=== PATIENT | male | born 1995 | race Caucasian/White ===

== ENCOUNTER 2018-04-18 12:47 | Emergency (ER) | payer SELFPAY ==
[2018-04-18] MEDS ORDERED: ONDANSETRON 4 MG/2 ML VIAL ONE (13:22)
[2018-04-18] MEDS ORDERED: NA CHLORIDE 0.9% 1,000 ML ONE (13:22)
[2018-04-18 13:50] LABS: Absolute Neutrophil 6.3 K/uL (1.8-8.0); Basophils % 0.7 % (0-1.3); Eosinophils % 1.6 % (0-4.4); Hematocrit 41.1 % (39.6-49.0); MPV 8.1 fL (7.6-11.3); RBC Red Blood Cell Count 4.37 M/uL (4.33-5.43)
[2018-04-18 13:53] LABS: Protime INR 0.94
[2018-04-18 14:10] LABS: Barbiturates NEGATIVE (NEGATIVE); Benzodiazepines NEGATIVE (NEGATIVE); Cocaine NEGATIVE (NEGATIVE); METHAMPHETAM POSITIVE (NEGATIVE); Methadone NEGATIVE (NEGATIVE); Opiates NEGATIVE (NEGATIVE); Phencyclidine NEGATIVE (NEGATIVE); THC Cannibis NEGATIVE (NEGATIVE)
--- NOTE | 2018-04-18 17:31 | EDPHYS ---
Physician Documentation [facility] Name: Frank Fortune Age: 22 yrs Sex: Male : 1995 Arrival Date: 04/18/2018 Time: 12:52 Bed 3 Private MD: ED Physician Arcadio Ball Historical: - Allergies: 04/18 13:12 No Known Drug Allergies; ph - PMHx: 13:12 possibly siezure; Schizophrenia; drug abuse; ph - PSHx: 13:12 None; ph - Immunization history:: Adult Immunizations unknown. - Social history:: Smoking status: unknown. - Ebola Screening: : No symptoms or risks identified at this time. Vital Signs: 13:13 BP 136 / 92; Pulse 107; Resp 12; Temp 97.8; Pulse Ox 100% on 3 lpm NC; ph 15:10 BP 132 / 72; Pulse 96; Resp 14; Pulse Ox 100% on R/A; sg 16:20 BP 132 / 88; Pulse 92; Resp 17; Temp 97.7; Pulse Ox 100% on R/A; sg MDM: 17:30 Patient medically screened. [facility] 04/18 12:52 Order name: CBC with Diff; Complete Time: 16:35 [facility] 04/18 12:52 Order name: PT-INR; Complete Time: 16:35 [facility] 04/18 12:52 Order name: Ptt, Activated; Complete Time: 16:35 [facility] 04/18 12:52 Order name: Urine Drug Screen; Complete Time: 16:35 [facility] 04/18 12:52 Order name: EKG; Complete Time: 12:54 [facility] 04/18 13:05 Order name: Glucose, Ancillary Testing; Complete Time: 13:30 EDMS 04/18 12:52 Order name: IV Saline Lock; Complete Time: 13:09 [facility] 04/18 12:52 Order name: Labs collected and sent; Complete Time: 13:09 [facility] 04/18 12:52 Order name: Urine Dipstick-Ancillary (obtain specimen); Complete Time: 13:09 [facility] 04/18 13:29 Order name: Labs - recollect needed; Complete Time: 17:28 eb Administered Medications: 13:18 Drug: NS 0.9% 1000 ml Route: IV; Rate: 1 bolus; Site: right antecubital; ph 13:19 Drug: Zofran 4 mg Route: IVP; Site: right antecubital; ph Point of Care Testing: Blood Glucose: 13:02 Blood Glucose: 85 mg/dL; dh3 Ranges: Critical Glucose Levels:Adult <50 mg/dl or >400 mg/dl <40 mg/dl or >180 mg/dl Disposition: 04/18/18 17:30 Discharged to Home. Impression: Other psychoactive substance abuse. - Condition is Stable. - Discharge Instructions: Substance Use Disorder. - Medication Reconciliation Form, Thank You Letter form. - Follow up: Private Physician; When: 2 - 3 days; Reason: If symptoms return, Further diagnostic work-up, Recheck today's complaints, Continuance of care, Re-evaluation by your physician. - Problem is an acute exacerbation. - Symptoms have improved. Signatures: Dispatcher [employer] EDMS Serafin Cody, RN RN sg Arcadio Ball MD MD [facility] Pham Gallagher RN RN ss Sameera Goodwin RN RN Lelia Cox Corrections: (The following items were deleted from the chart) 17:31 17:30 04/18/2018 17:30 Discharged to Home. Impression: Other psychoactive substance sg abuse. Condition is Stable. Forms are Medication Reconciliation Form, Thank You Letter, Antibiotic Education, Prescription Opioid Use. Follow up: Private Physician; When: 2 - 3 days; Reason: If symptoms return, Further diagnostic work-up, Recheck today's complaints, Continuance of care, Re-evaluation by your physician. Problem is an acute exacerbation. Symptoms have improved. kdr
--- NOTE | 2018-04-18 17:31 | ER ---
Nurse's Notes [facility] Name: Frank Fortune Age: 22 yrs Sex: Male : 1995 Arrival Date: 04/18/2018 Time: 12:52 Bed 3 Private MD: Diagnosis: Other psychoactive substance abuse Presentation: 04/18 13:07 Presenting complaint: EMS states: Called for seizure and AMS r/t greyson use, pt found ph sitting next to couch covered in vomit, responsive to painful stimuli, became combative and EMS unable to load pt onto stretcher, 300 mg Ketamine administered IM, systolic BP 140s,. HR 140 sinus tach and Spo2 98% DRY GOODS CLERK. Transition of care: patient was not received from another setting of care. Onset of symptoms was April 18, 2018. Risk Assessment: Do you want to hurt yourself or someone else? Patient reports no desire to harm self or others. Initial Sepsis Screen: Does the patient meet any 2 criteria? No. Patient's initial sepsis screen is negative. Does the patient have a suspected source of infection? No. Patient's initial sepsis screen is negative. Care prior to arrival: Medication(s) given: Normal saline infusion, 650 mL IV initiated. 18 GA, in the right antecubital area, Glucose check: 106. 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 - Social history:: Smoking status: unknown. - Ebola Screening: : No symptoms or risks identified at this time. Screenin:14 Abuse screen: Denies threats or abuse. Denies injuries from another. Nutritional ph screening: No deficits noted. Tuberculosis screening: No symptoms or risk factors identified. Fall Risk None identified. Assessment: 13:15 General: Appears in no apparent distress. slender, Behavior is unresponsive. Pain: ph Unable to use pain scale. Patient is unresponsive. pt medicated DRY GOODS CLERK. Neuro: Level of Consciousness is obtunded, Oriented to none. Cardiovascular: Capillary refill < 3 seconds in bilateral fingers Patient's skin is warm and dry. Rhythm is sinus tachycardia. Respiratory: Airway is patent Respiratory effort is even, unlabored, Respiratory pattern is regular, symmetrical. GI: EMS reports pt vomiting DRY GOODS CLERK. Derm: Skin is intact, Skin is pink, warm \\T\\ dry. 14:00 Reassessment: pt transported to CT via stretcher with CT staff members, in hallway pt sg sat up in stretcher and began yelling inaudibly at the staff members, pt transported back to exam room 2 to be calmed down. pt calmed at this time, placed into [facility] jumpsuit garb per pt request for clothing. 14:10 Reassessment: pt spitting at staff members at this time, pt encouraged not to spit at sg the staff in the ER, pt stated understanding, SRX2 bed remains in low and locked position, pt placed back to monitors at this time. 14:40 Reassessment: pt aa\\T\\o to self at this time, pt reports he does not remember what sg happened or how he got to the ER, pt informed that he was brought in via ambulance, pt states " who called the ambulance." educated pt not sure, but in report it was stated that the pts brother and mom called EMS. 14:50 Reassessment: pt laying left side lying position, eyes closed, appears calm and quiet sg with even and equal repsirations. 15:20 General: Behavior is agitated. Neuro: Level of Consciousness is awake, alert, obeys sg commands, Oriented to person, place, situation, Speech is normal, Facial symmetry appears normal. Respiratory: Airway is patent Respiratory effort is even, unlabored, Respiratory pattern is regular, symmetrical. Derm: Skin is pink, warm \\T\\ dry. 16:30 Reassessment: pt supine in bed with HOB elevated, pt laying in bed with eyes closed at sg this time, pt aunt at bedside at this time, awaiting ERP to re evaluate pt and speak with pt family member at this time. 16:50 Neuro: Level of Consciousness is awake, alert, obeys commands, Oriented to person, sg place, Speech is normal, Facial symmetry appears normal, pt requesting pain medication and requesting medication to help him sleep at home, notified of pt request, at bedside updating pt on POC and discharge to home. 16:58 Reassessment: Patient appears in no apparent distress at this time. Patient and/or sg family updated on plan of care and expected duration. Pain level reassessed. pt ambulatory to ER restroom with steady gait, carrying patient belongings with him to change clothes in the ER restroom. Overdose: 13:20 Patient took EMS reports the pt mother stated the pt smoked synthetic marijuana. sg Vital Signs: 13:13 BP 136 / 92; Pulse 107; Resp 12; Temp 97.8; Pulse Ox 100% on 3 lpm NC; ph 15:10 BP 132 / 72; Pulse 96; Resp 14; Pulse Ox 100% on R/A; sg 16:20 BP 132 / 88; Pulse 92; Resp 17; Temp 97.7; Pulse Ox 100% on R/A; sg ED Course: 12:52 Patient arrived in ED. ss 12:52 Arcadio Ball MD is Attending Physician. kdr 13:10 Triage completed. ph 13:12 Arm band placed on. ph 13:14 Straight cath inserted, using sterile technique, 16 Fr. Specimen obtained. Returned ph clear yellow urine. Patient tolerated well. Maintain EMS IV. Dressing intact. Good blood return noted. Site clean \\T\\ dry. Gauge \\T\\ site: 18G LAC. Oxygen administration via nasal cannula \\T\\ 3L/min. 13:15 Patient has correct armband on for positive identification. Placed in gown. Bed in low ph position. Call light in reach. Side rails up X2. Seizure precautions initiated. rubber washer on. Pulse ox on. NIBP on. 13:20 Initial lab(s) drawn, by me, sent to lab. sg 13:24 Serafin Cody, RN is Primary Nurse. sg 13:38 EKG done, by information technology auditor. reviewed by Arcadio Ball MD. sm3 13:40 Lab(s) recollected, by me, sent to lab. sg 13:53 Radiology exam delayed due to pt woke up and not cooperative. pj to call when ready. jg6 15:18 Radiology exam delayed due to PT HAS LOCKED HIMSELF IN THE BATHROOM AT THIS TIME. jg6 15:25 Assisted to bathroom. pt persistent on going to the restroom at this time, pt educated sg that the sensation to urinate may be there due to being catheterized when arrived in the ED, pt reports " man, why the fuck did yall do that shit to me. I was fine, why am i even fucking here, man im tired of fucking with yall. shit. im not going anywhere until i get some damn water." pt escorted back to exam room, pt tolerating water at this time, pt then turns around and ambulates back into the restroom, will continue to monitor. 15:36 pt continues to remain in the restroom in ER pod 1 at this time, reports " Man, Im sg still using the bathroom.". 15:40 pt ambulatory back to ER exam room bed 3, pt drinking water at this time. pt reports, sg "I gotta go back to the restroom." pt ambulatory back to ER pod 1 restroom at this time. 15:50 Radiology exam delayed due to pt is uncooperative at this time. 2 16:00 Assisted to bathroom. ambulatory with steady gait, pt encouraged to please return to sg exam room, pt insists on going to the restroom at this time. 17:00 No provider procedures requiring assistance completed. IV discontinued, intact, sg bleeding controlled, No redness/swelling at site. Pressure dressing applied. Administered Medications: 13:18 Drug: NS 0.9% 1000 ml Route: IV; Rate: 1 bolus; Site: right antecubital; ph 13:19 Drug: Zofran 4 mg Route: IVP; Site: right antecubital; ph Point of Care Testing: Blood Glucose: 13:02 Blood Glucose: 85 mg/dL; 3 Ranges: Outcome: 17:30 Discharge ordered by . [facility] 17:30 Discharged to home ambulatory, with family. sg 17:30 Condition: improved 17:30 Discharge instructions given to patient, but pt left prior to signing d/c papers and obtaining paperwork Instructed on discharge instructions, follow up and referral plans. safety practices, stop abusing substances Demonstrated understanding of instructions, follow-up care, Prescriptions given X 0 17:31 Patient left the ED. sg Signatures: Serafin Cody, RN RN sg Arcadio Ball MD MD [facility] Pham Gallagher RN RN Sameera Goodwin RN RN Joselyn Steve [facility] Pricilla Alfonso formerly [facility] Brenna Snell [facility] Ifrah Lorenzana6
[2018-04-18 17:49] VITALS: BP 136/92; TEMP 97.8; O2SAT 100
--- NOTE | 2018-04-19 14:04 | EKG ---
Test Date: 2018-04-18 Test Time: 13:27:42 Second Operator: NICK MEASUREMENT RESULTS: Intervals: Rate: 104 MN: 150 QRSD: 90 QT: 324 QTc: 426 [place]: P: 73 MN: 150 QRS: 80 T: 61 INTERPRETIVE STATEMENTS: Sinus tachycardia Otherwise normal ECG Compared to ECG 10/19/2016 13:35:20 Sinus rhythm no longer present Sinus arrhythmia no longer present Electronically Signed On 04-19-18 13:59:11 HAND HIDE STRETCHER by Serafin Rankin
== END 2018-04-18 17:31 | disposition home or self-care (01) ==
LOC: ER 12:47
DX: F19.10 Other psychoactive substance abuse, uncomplicated (principal)
CPT/HCPCS: 80307; 82962; 85025; 85610; 85730; 93005; J2405; J7030

== ENCOUNTER 2018-06-07 18:10 | Emergency (ER) | payer SELFPAY ==
[2018-06-07 18:58] LABS: Absolute Lymphocytes (CBC) 3.1 K/uL (0.7-4.9); Absolute Monocytes 1.2 K/uL (0.1-1.3); Absolute Neutrophil 5.5 K/uL (1.8-8.0); Eosinophils % 3.4 % (0-4.4); Hematocrit 39.2 % (39.6-49.0); Lymphocytes % 29.9 % (15.3-44.8); MPV 7.6 fL (7.6-11.3); Monocytes % 12.1 % (3.3-12.3)
--- NOTE | 2018-06-07 19:22 | RAD REPORT ---
EXAM DESCRIPTION: RAD - Chest Single View - 06/07/2018 7:00 pm CLINICAL HISTORY: Right-sided chest pain, shortness of breath COMPARISON: September 2016 TECHNIQUE: AP portable chest image was obtained 1851 hours . FINDINGS: Lungs are clear. Heart and vasculature are normal. No measurable pleural effusion and no p neumothorax. No acute bony abnormality seen. No acute aortic findings suspected. IMPRESSION: No acute cardiopulmonary process. No significant interval change.
[2018-06-07 19:23] LABS: BUN Blood Urea Nitrogen 15 mg/dL (7-18); Bicarbonate 26 mmol/L (21-32); Glucose Level 88 mg/dL (74-106); Potassium 3.6 mmol/L (3.5-5.1); Sodium Level 143 mmol/L (136-145); Troponin (Emerg Dept Use Only) < 0.02 ng/mL (0.0-0.045)
--- NOTE | 2018-06-07 19:31 | EDPHYS ---
Physician Documentation [facility] Name: Frank Fortune Age: 22 yrs Sex: Male : 1995 Arrival Date: 06/07/2018 Time: 18:11 Bed 25 Private MD: ED Physician Arcadio Ball HPI: 06/07 19:27 This 22 yrs old Male presents to ER via EMS with complaints of Chest Pain. pm1 19:27 The patient or guardian reports chest pain that is located primarily in the anterior pm1 aspect of left upper chest. The pain does not radiate. Associated signs and symptoms: Pertinent negatives: abdominal pain, cough, diaphoresis, dizziness, headache, nausea, shortness of breath, vomiting. The chest pain is described as sharp. Duration: The patient or guardian reports a single episode. Modifying factors: the symptoms are aggravated by cough, deep breath, palpation of area. Severity of pain: in the emergency department the pain is unchanged. The patient has not experienced similar symptoms in the past. The patient has not recently seen a physician. 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 - Social history:: Smoking status: . - Ebola Screening: : Patient denies travel to an Ebola-affected area in the 21 days before illness onset. ROS: 19:27 Constitutional: Negative for fever, chills, and weight loss, Eyes: Negative for injury, pm1 pain, redness, and discharge, ENT: Negative for injury, pain, and discharge, Neck: Negative for injury, pain, and swelling. 19:27 Respiratory: Negative for shortness of breath, cough, wheezing, and pleuritic chest pain, Abdomen/GI: Negative for abdominal pain, nausea, vomiting, diarrhea, and constipation, Back: Negative for injury and pain, : Negative for injury, bleeding, discharge, and swelling, MS/Extremity: Negative for injury and deformity, Skin: Negative for injury, rash, and discoloration, Neuro: Negative for headache, weakness, numbness, tingling, and seizure. 19:27 Cardiovascular: Positive for chest pain, Negative for edema, orthopnea, palpitations, paroxysmal nocturnal dyspnea. Exam: 19:27 Constitutional: This is a well developed, well nourished patient who is awake, alert, pm1 and in no acute distress. Head/Face: Normocephalic, atraumatic. Eyes: Pupils equal round and reactive to light, extra-ocular motions intact. Lids and lashes normal. Conjunctiva and sclera are non-icteric and not injected. Cornea within normal limits. Periorbital areas with no swelling, redness, or edema. ENT: Nares patent. No nasal discharge, no septal abnormalities noted. Tympanic membranes are normal and external auditory canals are clear. Oropharynx with no redness, swelling, or masses, exudates, or evidence of obstruction, uvula midline. Mucous membranes moist. Neck: Trachea midline, no thyromegaly or masses palpated, and no cervical lymphadenopathy. Supple, full range of motion without nuchal rigidity, or vertebral point tenderness. No Meningismus. 19:27 Cardiovascular: Regular rate and rhythm with a normal S1 and S2. No gallops, murmurs, or rubs. Normal PMI, no JVD. No pulse deficits. Respiratory: Lungs have equal breath sounds bilaterally, clear to auscultation and percussion. No rales, rhonchi or wheezes noted. No increased work of breathing, no retractions or nasal flaring. Abdomen/GI: Soft, non-tender, with normal bowel sounds. No distension or tympany. No guarding or rebound. No evidence of tenderness throughout. Back: No spinal tenderness. No costovertebral tenderness. Full range of motion. 19:27 Skin: Warm, dry with normal turgor. Normal color with no rashes, no lesions, and no evidence of cellulitis. MS/ Extremity: Pulses equal, no cyanosis. Neurovascular intact. Full, normal range of motion. 19:27 Chest/axilla: Inspection: normal, Palpation: crepitus, is not appreciated, tenderness, of the anterior aspect of left upper chest, that totally reproduces the patient's complaints. 19:27 NSR 19:27 Neuro: Orientation: is normal, Motor: is normal, moves all fours. Vital Signs: 18:13 Pulse 93; Resp 17; Temp 98.1(O); Pulse Ox 97% on R/A; Pain 10/10; tw2 19:05 BP 138 / 89; Pulse 73; Resp 16; Pulse Ox 100% on R/A; aa1 19:34 BP 133 / 85; Pulse 73; Resp 16; Temp 98.3; Pulse Ox 99% on R/A; Pain 6/10; aa1 MDM: 18:25 Patient medically screened. pm1 18:30 Data reviewed: vital signs. Data interpreted: Pulse oximetry: on room air is 97 %. pm1 Interpretation: normal. 19:30 Counseling: I had a detailed discussion with the patient and/or guardian regarding: the pm1 historical points, exam findings, and any diagnostic results supporting the discharge/admit diagnosis, lab results, radiology results, the need for outpatient follow up, to return to the emergency department if symptoms worsen or persist or if there are any questions or concerns that arise at home. 06/07 18:30 Order name: Basic Metabolic Panel; Complete Time: 19:26 pm1 06/07 18:30 Order name: CBC with Diff; Complete Time: 19:26 pm1 06/07 18:30 Order name: Cardiac monitoring; Complete Time: 18:44 pm1 06/07 18:30 Order name: Troponin (emerg Dept Use Only); Complete Time: 19:26 pm1 06/07 18:30 Order name: XRAY Chest (1 view); Complete Time: 19:26 pm1 06/07 18:30 Order name: EKG; Complete Time: 18:32 pm1 06/07 18:30 Order name: O2 Sat Monitoring; Complete Time: 18:44 pm1 06/07 18:30 Order name: O2 Per Protocol; Complete Time: 18:44 pm1 06/07 18:30 Order name: EKG - Nurse/Tech; Complete Time: 18:44 pm1 06/07 18:30 Order name: IV Saline Lock; Complete Time: 18:44 pm1 06/07 18:30 Order name: Labs collected and sent; Complete Time: 18:44 pm1 Administered Medications: No medications were administered Disposition: 06/07/18 19:30 Discharged to Home. Impression: Chest pain, unspecified. - Condition is Stable. - Discharge Instructions: Nonspecific Chest Pain. - Medication Reconciliation Form, Thank You Letter, Antibiotic Education, Prescription Opioid Use form. - Follow up: Emergency Department; When: As needed; Reason: Worsening of condition. Follow up: Private Physician; When: 2 - 3 days; Reason: Recheck today's complaints, Continuance of care, Re-evaluation by your physician. - Problem is new. - Symptoms have improved. Addendum: 06/10/2018 07:08 Co-signature as Attending Physician, Arcadio Ball MD I agree with the assessment and k dr plan of care. Signatures: Dispatcher [employer] EDMS Gala Cervantes RN RN aa1 Arcadio Ball MD MD [facility] [employer] NP ROLLER CLEANER pm1 Liza Palm RN RN tw2 Corrections: (The following items were deleted from the chart) 06/07 19:41 19:30 06/07/2018 19:30 Discharged to Home. Impression: Chest pain, unspecified. aa1 Condition is Stable. Forms are Medication Reconciliation Form, Thank You Letter, Antibiotic Education, Prescription Opioid Use. Follow up: Emergency Department; When: As needed; Reason: Worsening of condition. Follow up: Private Physician; When: 2 - 3 days; Reason: Recheck today's complaints, Continuance of care, Re-evaluation by your physician. Problem is new. Symptoms have improved. pm1
--- NOTE | 2018-06-07 19:31 | ER ---
Nurse's Notes [facility] Name: Frank Fortune Age: 22 yrs Sex: Male : 1995 Arrival Date: 06/07/2018 Time: 18:11 Bed 25 Private MD: Diagnosis: Chest pain, unspecified Presentation: 06/07 18:11 Presenting complaint: EMS states: pt in custody of [employer], officer at bedside, pt c/o SOB tw2 with sharp stabbing pain to RIGHT side of chest , pt is exhibiting symptoms of anxiety, crying, fidgeting, vs stable. Transition of care: patient was not received from another setting of care. Onset of symptoms was June 07, 2018. Risk Assessment: Do you want to hurt yourself or someone else? Patient reports no desire to harm self or others. Initial Sepsis Screen: Does the patient meet any 2 criteria? No. Patient's initial sepsis screen is negative. Does the patient have a suspected source of infection? No. Patient's initial sepsis screen is negative. Care prior to arrival: None. 18:11 Method Of Arrival: EMS: [facility] tw2 18:11 Acuity: [place] 3 tw2 Historical: - Allergies: 18:15 No Known Drug Allergies; tw2 - PMHx: 18:15 Schizophrenia; possibly siezure; drug abuse; tw2 - PSHx: 18:15 None; tw2 - Immunization history:: Adult Immunizations. - Social history:: Smoking status: . - Ebola Screening: : Patient denies travel to an Ebola-affected area in the 21 days before illness onset. Screenin:14 Abuse screen: Denies threats or abuse. Nutritional screening: No deficits noted. tw2 Tuberculosis screening: No symptoms or risk factors identified. Fall Risk None identified. Assessment: 18:15 General: Appears in no apparent distress. Behavior is calm, cooperative, appropriate tw2 for age. Pain: Pain does not radiate. Pain began suddenly. Neuro: Level of Consciousness is awake, alert, obeys commands, Oriented to person, place, time, situation. Cardiovascular: Heart tones S1 S2 Capillary refill < 3 seconds Patient's skin is warm and dry. Cardiovascular: Reports chest pain. Respiratory: Airway is patent Respiratory effort is even, unlabored, Respiratory pattern is regular, symmetrical, Breath sounds are clear bilaterally. GI: No signs and/or symptoms were reported involving the gastrointestinal system. : No signs and/or symptoms were reported regarding the genitourinary system. EENT: No signs and/or symptoms were reported regarding the EENT system. Derm: No signs and/or symptoms reported regarding the dermatologic system. Musculoskeletal: Circulation, motion, and sensation intact. Range of motion: limited in all extremities, d/t hand cuffs and y-shaped harness. 19:05 Reassessment: Patient appears in no apparent distress at this time. Patient and/or aa1 family updated on plan of care and expected duration. Pain level reassessed. Patient is alert, oriented x 3, equal unlabored respirations, skin warm/dry/pink. Awaiting provider reassessment. 19:40 Reassessment: Patient appears in no apparent distress at this time. Patient is alert, aa1 oriented x 3, equal unlabored respirations, skin warm/dry/pink. Discussed d/c \T\ f/u instructions with pt; denies questions or concerns at this time Patient denies pain at this time. Patient states feeling better. Vital Signs: 18:13 Pulse 93; Resp 17; Temp 98.1(O); Pulse Ox 97% on R/A; Pain 10/10; tw2 19:05 BP 138 / 89; Pulse 73; Resp 16; Pulse Ox 100% on R/A; aa1 19:34 BP 133 / 85; Pulse 73; Resp 16; Temp 98.3; Pulse Ox 99% on R/A; Pain 6/10; aa1 ED Course: 18:11 Patient arrived in ED. tw2 18:13 Triage completed. tw2 18:14 Arm band placed on. tw2 18:14 Patient maintains SpO2 saturation greater than 95% on room air. tw2 18:16 Bed in low position. Call light in reach. Side rails up X2. supply chain systems manager on. Pulse tw2 ox on. NIBP on. [employer] at bedside at this time. 18:22 Liza Palm RN is Primary Nurse. tw2 18:24 Sony Church NP is PHCP. pm1 18:24 Arcadio Ball MD is Attending Physician. pm1 18:40 Inserted saline lock: 20 gauge in left forearm, using aseptic technique. Blood hb collected. 19:00 XRAY Chest (1 view) In Process Unspecified. EDMS 19:03 Report given to ROSS Cedeño. tw2 19:40 No provider procedures requiring assistance completed. IV discontinued, intact, aa1 bleeding controlled, No redness/swelling at site. Pressure dressing applied. Administered Medications: No medications were administered Outcome: 19:30 Discharge ordered by MD. pm1 19:40 Discharged to Law Enforcement aa1 19:40 Condition: good 19:40 Discharge instructions given to patient, police, Instructed on discharge instructions, follow up and referral plans. Demonstrated understanding of instructions, follow-up care. 19:41 Patient left the ED. aa1 Signatures: Dispatcher [employer] EDPR Gala Cervantes, ROSS RN aa1 Sony Church, DESKTOP SUPPORT ENGINEER DESKTOP SUPPORT ENGINEER pm1 Yu Moreno RN RN Liza Palm RN RN tw2
[2018-06-07 19:52] VITALS: BP 133/85; TEMP 98.3; O2SAT 99
--- NOTE | 2018-06-08 07:15 | EKG ---
Test Date: 2018-06-07 Test Time: 18:37:08 Offset Printing Operator: TM MEASUREMENT RESULTS: Intervals: Rate: 65 OH: 136 QRSD: 82 QT: 382 QTc: 397 Dumont: P: 38 OH: 136 QRS: 83 T: 70 INTERPRETIVE STATEMENTS: Normal sinus rhythm Normal ECG Compared to ECG 04/18/2018 13:27:42 Sinus tachycardia no longer present Electronically Signed On 06-08-18 07:14:35 BONSAI TENDER by Surya Candelaria
== END 2018-06-07 19:41 | disposition home or self-care (01) ==
LOC: ER 18:10
DX: R07.9 Chest pain, unspecified (principal)
CPT/HCPCS: 36415; 71045; 80048; 84484; 85025; 93005; 99285

== ENCOUNTER 2018-10-01 16:59 | Emergency (ER) | payer SELFPAY ==
--- NOTE | 2018-10-01 17:09 | ER ---
Nurse's Notes [facility] Name: Frank Fortune Age: 23 yrs Sex: Male : 1995 Arrival Date: 10/01/2018 Time: 17:03 Bed 17 Private MD: Diagnosis: Panic disorder [episodic paroxysmal anxiety] without agoraphobia Presentation: 10/01 17:04 Presenting complaint: EMS states: Patient's friend jumped off the [place] and went to senior living. Pt reports shortly after that he felt anxious and that he felt as if he was going to have a seizure. On arrival to ER, patient reports he is feeling much better and believes it was just anxiety and would like to go home. Transition of care: patient was not received from another setting of care. Onset of symptoms was October 01, 2018. Risk Assessment: Do you want to hurt yourself or someone else? Patient reports no desire to harm self or others. Initial Sepsis Screen: Does the patient meet any 2 criteria? No. Patient's initial sepsis screen is negative. Does the patient have a suspected source of infection? No. Patient's initial sepsis screen is negative. Care prior to arrival: None. 17:04 Method Of Arrival: EMS: [facility] 17:04 Acuity: [place] 5 Historical: - Allergies: 17:09 No Known Allergies; ss - Home Meds: 17:09 None [Active]; ss - PMHx: 17:09 drug abuse; Schizophrenia; Seizures; ss - PSHx: 17:09 None; ss - Immunization history:: Adult Immunizations up to date. - Social history:: Smoking status: Patient uses tobacco products, smokes one-half pack cigarettes per day. - Ebola Screening: : Patient denies exposure to infectious person Patient denies travel to an Ebola-affected area in the 21 days before illness onset. Screenin:10 Abuse screen: Denies threats or abuse. Denies injuries from another. Nutritional ss screening: No deficits noted. Tuberculosis screening: Never had TB. Fall Risk None identified. Assessment: 17:10 General: Appears in no apparent distress. comfortable, Behavior is calm, cooperative. ss Pain: Denies pain. Neuro: Level of Consciousness is awake, alert, obeys commands, Oriented to person, place, time, situation. Cardiovascular: Capillary refill < 3 seconds is brisk in bilateral fingers. Respiratory: Airway is patent Respiratory effort is even, unlabored, Respiratory pattern is regular, symmetrical. EENT: Oral mucosa is moist. Derm: Skin is intact, is healthy with good turgor, Skin is dry, Skin is pink, warm \T\ dry. normal. Vital Signs: 17:09 BP 130 / 70; Pulse 90; Resp 15; Temp 98.7(TE); Pulse Ox 99% on R/A; Weight 81.65 kg; ss Height 6 ft. 0 in. (182.88 cm); Pain 0/10; 17:09 Body Mass Index 24.41 (81.65 kg, 182.88 cm) ED Course: 17:03 Patient arrived in ED. 17:03 Shai Crespo PA is PHCP. jr8 17:03 Wilbur Ramírez MD is Attending Physician. jr8 17:08 Triage completed. ss 17:09 Arm band placed on right wrist. 17:10 Patient has correct armband on for positive identification. Bed in low position. Call ss light in reach. 17:10 No provider procedures requiring assistance completed. Patient did not have IV access ss during this emergency room visit. Administered Medications: No medications were administered Outcome: 17:08 Discharge ordered by . jr8 17:10 Discharged to home ambulatory, with family. 17:10 Condition: good 17:10 Discharge instructions given to patient, family, Instructed on discharge instructions, follow up and referral plans. Demonstrated understanding of instructions, follow-up care. 17:11 Patient left the ED. Signatures: Pham Gallagher RN RN Shai Crespo PA PA jr8
--- NOTE | 2018-10-01 17:09 | EDPHYS ---
Physician Documentation [facility] Name: Frank Fortune Age: 23 yrs Sex: Male : 1995 Arrival Date: 10/01/2018 Time: 17:03 Bed 17 Private MD: ED Physician Wilbur Ramírez HPI: 10/01 17:04 This 23 yrs old Male presents to ER via Unassigned with complaints of jr8 anxiety. [employer] like he was going to have seizure. 17:04 The patient presents to the emergency department with anxiety. Onset: The jr8 symptoms/episode began/occurred acutely, today. Associated signs and symptoms: The patient has no apparent associated signs or symptoms. Severity of symptoms: At their worst the symptoms were moderate in the emergency department the symptoms have resolved. The patient has not experienced similar symptoms in the past. The patient has not recently seen a physician. Stated that friend and [place]. Friend jumped off into water. Police came and was going to arrest him. Started to feel anxious. Brought to ED at that time. Now feeling better. Historical: - Allergies: 17:09 No Known Allergies; ss - Home Meds: 17:09 None [Active]; ss - PMHx: 17:09 drug abuse; Schizophrenia; Seizures; ss - PSHx: 17:09 None; ss - Immunization history:: Adult Immunizations up to date. - Social history:: Smoking status: Patient uses tobacco products, smokes one-half pack cigarettes per day. - Ebola Screening: : Patient denies exposure to infectious person Patient denies travel to an Ebola-affected area in the 21 days before illness onset. ROS: 17:04 Eyes: Negative for injury, pain, redness, and discharge, ENT: Negative for injury, jr8 pain, and discharge, Neck: Negative for injury, pain, and swelling, Cardiovascular: Negative for chest pain, palpitations, and edema, Respiratory: Negative for shortness of breath, cough, wheezing, and pleuritic chest pain, Abdomen/GI: Negative for abdominal pain, nausea, vomiting, diarrhea, and constipation, Back: Negative for injury and pain, MS/Extremity: Negative for injury and deformity, Skin: Negative for injury, rash, and discoloration, Neuro: Negative for headache, weakness, numbness, tingling, and seizure. 17:04 Psych: Positive for anxiety. Exam: 17:04 Eyes: Pupils equal round and reactive to light, extra-ocular motions intact. Lids and jr8 lashes normal. Conjunctiva and sclera are non-icteric and not injected. Cornea within normal limits. Periorbital areas with no swelling, redness, or edema. ENT: Nares patent. No nasal discharge, no septal abnormalities noted. Tympanic membranes are normal and external auditory canals are clear. Oropharynx with no redness, swelling, or masses, exudates, or evidence of obstruction, uvula midline. Mucous membranes moist. Neck: Trachea midline, no thyromegaly or masses palpated, and no cervical lymphadenopathy. Supple, full range of motion without nuchal rigidity, or vertebral point tenderness. No Meningismus. Cardiovascular: Regular rate and rhythm with a normal S1 and S2. No gallops, murmurs, or rubs. Normal PMI, no JVD. No pulse deficits. Respiratory: Lungs have equal breath sounds bilaterally, clear to auscultation and percussion. No rales, rhonchi or wheezes noted. No increased work of breathing, no retractions or nasal flaring. Abdomen/GI: Soft, non-tender, with normal bowel sounds. No distension or tympany. No guarding or rebound. No evidence of tenderness throughout. Back: No spinal tenderness. No costovertebral tenderness. Full range of motion. Skin: Warm, dry with normal turgor. Normal color with no rashes, no lesions, and no evidence of cellulitis. MS/ Extremity: Pulses equal, no cyanosis. Neurovascular intact. Full, normal range of motion. Neuro: Awake and alert, GCS 15, oriented to person, place, time, and situation. Cranial nerves II-XII grossly intact. Motor strength 5/5 in all extremities. Sensory grossly intact. Cerebellar exam normal. Normal gait. Psych: Awake, alert, with orientation to person, place and time. Behavior, mood, and affect are within normal limits. Vital Signs: 17:09 BP 130 / 70; Pulse 90; Resp 15; Temp 98.7(TE); Pulse Ox 99% on R/A; Weight 81.65 kg; ss Height 6 ft. 0 in. (182.88 cm); Pain 0/10; 17:09 Body Mass Index 24.41 (81.65 kg, 182.88 cm) ss MDM: 17:03 Patient medically screened. jr8 17:07 Data reviewed: vital signs, nurses notes, and as a result, I will discharge patient. jr8 Data interpreted: Pulse oximetry: on room air is 100 %. Interpretation: normal. Counseling: I had a detailed discussion with the patient and/or guardian regarding: the historical points, exam findings, and any diagnostic results supporting the discharge/admit diagnosis, the need for outpatient follow up, a family practitioner, to return to the emergency department if symptoms worsen or persist or if there are any questions or concerns that arise at home. Administered Medications: No medications were administered Disposition: 10/02 09:43 Co-signature as Attending Physician, Wilbur Ramírez MD I agree with the assessment and wa plan of care. Disposition: 10/01/18 17:08 Discharged to Home. Impression: Panic disorder [episodic paroxysmal anxiety] without agoraphobia. - Condition is Stable. - Discharge Instructions: Panic Attacks. - Medication Reconciliation Form, Thank You Letter, Antibiotic Education, Prescription Opioid Use form. - Follow up: Private Physician; When: As needed; Reason: Recheck today's complaints, Continuance of care, Re-evaluation by your physician. - Problem is new. - Symptoms are resolved. Signatures: Pham Gallagher RN RN Shai Crespo PA PA jr8 Wilbur Ramírez MD MD nc Corrections: (The following items were deleted from the chart) 10/01 17:11 17:08 10/01/2018 17:08 Discharged to Home. Impression: Panic disorder [episodic ss paroxysmal anxiety] without agoraphobia. Condition is Stable. Forms are Medication Reconciliation Form, Thank You Letter, Antibiotic Education, Prescription Opioid Use. Follow up: Private Physician; When: As needed; Reason: Recheck today's complaints, Continuance of care, Re-evaluation by your physician. Problem is new. Symptoms are resolved. jr8
[2018-10-02 19:46] VITALS: BP 130/70; TEMP 98.7; O2SAT 99
== END 2018-10-01 17:11 | disposition home or self-care (01) ==
LOC: ER 16:59
DX: F41.0 Panic disorder [episodic paroxysmal anxiety] (principal); F17.210 Nicotine dependence, cigarettes, uncomplicated
CPT/HCPCS: 99283

== ENCOUNTER 2021-12-06 13:44 | Emergency (ER) | payer SELFPAY ==
--- NOTE | 2021-12-06 15:49 | RAD REPORT ---
EXAM DESCRIPTION: US - Scrotum Testicles - 12/06/2021 3:39 pm CLINICAL HISTORY: pain COMPARISON: <Comparisons> FINDINGS: The right testicle measures 3.1 x 2.6 x 4.5 cm with volume of 18.7 cc. No intratesticular masses or evidence of testicular torsion. The left testicle measures 4.6 x 2.3 x 4.3 cm with volume of 24.3 cc.. No intratesticular masses or e vidence of testicular torsion. Both epididymides are normal in size and appearance. No pathologic fluid collections. IMPRESSION: Bilateral testicular blood flow. No acute findings are identified.
[2021-12-06 16:29] LABS: Urine Blood Negative (Negative); Urine Glucose Negative (Negative); Urine Protein Negative (Negative); Urine Specific Gravity 1.025 (1.005-1.030)
[2021-12-06 17:07] LABS: Urine Mucus 1+ /HPF (None Seen); Urine RBC <5 /HPF (None Seen)
--- NOTE | 2021-12-06 17:12 | EDPHYS ---
Physician Documentation [facility] Name: Frank Fortune Age: 26 yrs Sex: Male : 1995 Arrival Date: 12/06/2021 Time: 13:46 Bed Waiting Private MD: ED Physician Michael Crawford HPI: 12/06 14:25 This 26 yrs old Male presents to ER via Ambulatory with complaints of Testicular Pain. pm1 14:25 The patient presents with scrotal pain, of both sides. Onset: The symptoms/episode pm1 began/occurred this morning. Modifying factors: The symptoms are alleviated by nothing, the symptoms are aggravated by nothing. Associated signs and symptoms: Pertinent positives: abdominal pain, Pertinent negatives: dysuria, fever, hematuria, penile discharge. Severity of symptoms: in the emergency department the symptoms are unchanged. The patient has not experienced similar symptoms in the past. The patient has not recently seen a physician. Historical: - Allergies: 14:15 No Known Allergies; bm7 - PMHx: 14:15 drug abuse; possibly siezure; Schizophrenia; Seizures; bm7 - PSHx: 14:15 None; bm7 - Immunization history:: Adult Immunizations up to date. - Social history:: Smoking status: Patient reports the use of cigarette tobacco products, smokes one-half pack cigarettes per day, Patient uses street drugs, marijuana. ROS: 14:25 Constitutional: Negative for fever, chills, and weight loss, Cardiovascular: Negative pm1 for chest pain, palpitations, and edema, Respiratory: Negative for shortness of breath, cough, wheezing, and pleuritic chest pain. 14:25 Back: Negative for injury and pain. 14:25 MS/Extremity: Negative for injury and deformity, Skin: Negative for injury, rash, and discoloration. 14:25 Neuro: Negative for headache, weakness, numbness, tingling, and seizure. 14:25 Abdomen/GI: Positive for abdominal pain, of the suprapubic area, feels like someon kicked him in the groin pain, Negative for nausea, vomiting, and diarrhea. 14:25 : Positive for testicular pain of the left testicle and right testicle. 14:25 All other systems are negative. Exam: 14:25 Constitutional: This is a well developed, well nourished patient who is awake, alert, pm1 and in no acute distress. Head/Face: Normocephalic, atraumatic. 14:25 Skin: Warm, dry with normal turgor. Normal color with no rashes, no lesions, and no evidence of cellulitis. MS/ Extremity: Pulses equal, no cyanosis. Neurovascular intact. Full, normal range of motion. 14:25 Eyes: Exam is negative for acute changes, Periorbital structures: appear normal, Pupils: no acute changes, Extraocular movements: no acute changes. 14:25 ENT: Exam is negative for acute changes, Mouth: no acute changes, Lips: normal, moist, Oral mucosa: normal, pink and intact, moist. 14:25 Cardiovascular: Exam negative for acute changes, Rate: normal, Rhythm: regular, Pulses: no pulse deficits are appreciated. 14:25 Respiratory: Exam negative for acute changes, respiratory distress, shortness of breath. 14:25 Abdomen/GI: Inspection: abdomen appears normal, Palpation: abdomen is soft and non-tender, in all quadrants. 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 14:25 Neuro: Exam negative for acute changes, Orientation: is normal, Mentation: is normal, Motor: is normal, moves all fours. Vital Signs: 14:15 BP 128 / 76; Pulse 83; Resp 16; Temp 98.6(TE); Pulse Ox 100% on R/A; Weight 74.84 kg bm7 (R); Height 6 ft. 1 in. (185.42 cm); Pain 8/10; 14:15 Body Mass Index 21.77 (74.84 kg, 185.42 cm) bm7 MDM: 14:11 Patient medically screened. pm1 14:24 Data reviewed: vital signs. Data interpreted: Pulse oximetry: on room air is 100 %. pm1 Interpretation: normal. 17:10 Counseling: I had a detailed discussion with the patient and/or guardian regarding: the pm1 historical points, exam findings, and any diagnostic results supporting the discharge/admit diagnosis, lab results, radiology results, the need for outpatient follow up, to return to the emergency department if symptoms worsen or persist or if there are any questions or concerns that arise at home. 12/06 16:29 Order name: Urine Dipstick-Ancillary; Complete Time: 16:31 EDMS 12/06 14:25 Order name: Urine Dipstick-Ancillary (obtain specimen); Complete Time: 16:28 pm1 12/06 14:25 Order name: US Scrotum Testicles pm1 12/06 15:50 Order name: US; Complete Time: 16:22 EDMS 12/06 17:07 Order name: Urine Microscopic Only; Complete Time: 17:10 EDMS Administered Medications: No medications were administered Disposition: 18:49 Co-signature as Attending Physician, Michael Crawford MD. rn Disposition Summary: 12/06/21 17:11 Discharge Ordered Location: Home pm1 Problem: new pm1 Symptoms: have improved pm1 Condition: Stable pm1 Diagnosis - Scrotal pain pm1 Followup: pm1 - With: Emergency Department - When: As needed - Reason: Worsening of condition Followup: pm1 - With: Private Physician - When: 2 - 3 days - Reason: Recheck today's complaints, Continuance of care, Re-evaluation by your physician Discharge Instructions: - Discharge Summary Sheet pm1 - Testicular Self-Exam pm1 Forms: - Medication Reconciliation Form pm1 - Thank You Letter pm1 - Antibiotic Education pm1 - Prescription Opioid Use pm1 Signatures: Dispatcher [employer] EDMichael Zavala MD MD rn Marinas, Patrick, DIANA SUEDING MACHINE OPERATOR pm1 Ronda Strong, RN RN bm7
--- NOTE | 2021-12-06 17:12 | ER ---
Nurse's Notes [facility] Name: Frank Fortune Age: 26 yrs Sex: Male : 1995 Arrival Date: 12/06/2021 Time: 13:46 Bed Waiting Private MD: Diagnosis: Scrotal pain Presentation: 12/06 14:13 Chief complaint: Patient states: My lower stomach and testicles started hurting really bm7 bad last night. Coronavirus screen: At this time, the client does not indicate any symptoms associated with coronavirus-19. Ebola Screen: No symptoms or risks identified at this time. Initial Sepsis Screen: Does the patient meet any 2 criteria? No. Patient's initial sepsis screen is negative. Does the patient have a suspected source of infection? No. Patient's initial sepsis screen is negative. Risk Assessment: Do you want to hurt yourself or someone else? Patient reports no desire to harm self or others. Onset of symptoms was December 05, 2001. 14:13 Method Of Arrival: Ambulatory banner 14:13 Acuity: [place] 3 bm7 Triage Assessment: 14:15 General: Appears in no apparent distress. uncomfortable, Behavior is calm, cooperative, bm7 appropriate for age. Pain: Complains of pain in groin. EENT: No deficits noted. No signs and/or symptoms were reported regarding the EENT system. Neuro: No deficits noted. Cardiovascular: No deficits noted. Respiratory: No deficits noted. GI: Abdomen is round non-distended, Bowel sounds present X 4 quads. Abd is soft X 4 quads Abdomen is tender to palpation in suprapubic area Reports lower abdominal pain, nausea. : Swelling noted on scrotum Reports Scrotal pain: sudden onset Patient is sexually active. Derm: No deficits noted. No signs and/or symptoms reported regarding the dermatologic system. Musculoskeletal: No deficits noted. No signs and/or symptoms reported regarding the musculoskeletal system. Historical: - Allergies: 14:15 No Known Allergies; bm7 - PMHx: 14:15 drug abuse; possibly siezure; Schizophrenia; Seizures; bm7 - PSHx: 14:15 None; bm7 - Immunization history:: Adult Immunizations up to date. - Social history:: Smoking status: Patient reports the use of cigarette tobacco products, smokes one-half pack cigarettes per day, Patient uses street drugs, marijuana. Vital Signs: 14:15 BP 128 / 76; Pulse 83; Resp 16; Temp 98.6(TE); Pulse Ox 100% on R/A; Weight 74.84 kg bm7 (R); Height 6 ft. 1 in. (185.42 cm); Pain 8/10; 14:15 Body Mass Index 21.77 (74.84 kg, 185.42 cm) bm7 ED Course: 13:46 Patient arrived in ED. am2 14:11 Sony Church NP is PHCP. pm1 14:11 Michael Crawford MD is Attending Physician. pm1 14:14 Triage completed. bm7 14:15 Arm band placed on right wrist. bm7 Administered Medications: No medications were administered Outcome: 17:11 Discharge ordered by . pm1 17:15 Patient left the ED. ld1 Signatures: Sony Church NP CLINICAL APPLICATION SPECIALIST pm1 Maira Chambers am2 Ronda Strong RN RN bm7 Alta Severino RN RN ld1
[2021-12-06 19:10] VITALS: BP 128/76; TEMP 98.6; O2SAT 100
== END 2021-12-06 17:15 | disposition home or self-care (01) ==
LOC: ER 13:44
DX: N50.82 Scrotal pain (principal); F17.210 Nicotine dependence, cigarettes, uncomplicated
CPT/HCPCS: 76870; 81003; 81015; 99281

== ENCOUNTER 2022-04-23 07:51 | Emergency (ER) | payer SELFPAY ==
[2022-04-23] MEDS ORDERED: levETIRAcetam 500 MG TAB ONE (08:22)
[2022-04-23 08:44] LABS: Absolute Lymphocytes (CBC) 1.5 K/uL (0.7-4.9); Hematocrit 43.1 % (39.6-49.0); Lymphocytes % 13.8 % (15.3-44.8); MCV 92.7 fL (80-100); MPV 7.2 fL (7.6-11.3); RBC Red Blood Cell Count 4.65 M/uL (4.33-5.43)
[2022-04-23 09:19] LABS: Potassium 3.8 mmol/L (3.5-5.1)
--- NOTE | 2022-04-23 09:25 | RAD REPORT ---
EXAM DESCRIPTION: CT - Head Brain Wo Cont - 04/23/2022 9:05 am CLINICAL HISTORY: possible seizure, head injury Headache, drowsiness, possible seizure. COMPARISON: Head Brain Wo Cont dated 10/19/2016; Head Brain Wo Cont dated 04/16/2016 TECHNIQUE: All CT scans are performed using dose optimization technique as appropriate and may inclu de automated exposure control or mA/KV adjustment according to patient size. FINDINGS: No intracranial hemorrhage, hydrocephalus or extra-axial fluid collection.No areas of brai n edema or evidence of midline shift. The paranasal sinuses and mastoids are clear. The calvarium is intact. IMPRESSION: No acute intracranial abnormality.
--- NOTE | 2022-04-23 09:57 | ER ---
Nurse's Notes [facility] [place] Name: Frank Fortune Age: 26 yrs Sex: Male : 1995 Arrival Date: 04/23/2022 Time: 07:52 Bed 14 Private MD: Diagnosis: Epileptic seizures related to external causes, not intractable, without status epilepticus Presentation: 04/23 07:52 Chief complaint: EMS states: SEIZURE LIKE ACTIVITY WITHOUT POST-ICTAL PERIOD OR bp INCONTINENCE. EMS CALLED FOR SAME Y/D. Coronavirus screen: At this time, the client does not indicate any symptoms associated with coronavirus-19. Ebola Screen: No symptoms or risks identified at this time. Initial Sepsis Screen: Does the patient meet any 2 criteria? No. Patient's initial sepsis screen is negative. Does the patient have a suspected source of infection? No. Patient's initial sepsis screen is negative. Risk Assessment: Do you want to hurt yourself or someone else? Patient reports no desire to harm self or others. Onset of symptoms was April 23, 2022 at 07:30. Care prior to arrival: IV initiated. 20 GA, in the right antecubital area, Glucose check: 62. 07:52 Method Of Arrival: EMS: [facility] bp 07:52 Acuity: [place] 3 bp Triage Assessment: 07:55 General: Appears in no apparent distress. comfortable, Behavior is calm, cooperative, bp appropriate for age. Pain: Denies pain. EENT: No deficits noted. Neuro: Level of Consciousness is awake, alert, obeys commands, Oriented to Appropriate for age. Cardiovascular: No deficits noted. Respiratory: No deficits noted. GI: No signs and/or symptoms were reported involving the gastrointestinal system. : No signs and/or symptoms were reported regarding the genitourinary system. Derm: No deficits noted. Musculoskeletal: No deficits noted. Historical: - Allergies: 07:55 No Known Drug Allergies; bp - PMHx: 07:55 drug abuse; possibly siezure; Schizophrenia; Seizures; bp - Immunization history:: Adult Immunizations up to date. - Social history:: Smoking status: unknown. - Family history:: not pertinent. - Hospitalizations: : No recent hospitalization is reported. Screenin:03 [facility] ED Fall Risk Assessment (Adult) History of falling in the last 3 months, bp including since admission No falls in past 3 months (0 pts). Abuse screen: Denies threats or abuse. Denies injuries from another. Nutritional screening: No deficits noted. Tuberculosis screening: No symptoms or risk factors identified. Assessment: 07:56 General: SEE TRIAGE NOTE. bp 10:03 Reassessment: PT DC IN [facility]. bp Vital Signs: 07:52 BP 125 / 87 Sitting; Pulse 98; Resp 17; Temp 98; Pulse Ox 99% ; bp 07:52 BP 141 / 92 Standing; Pulse 74; bp 07:57 BP 131 / 87; Pulse 90; Resp 18; Temp 97.8; Pulse Ox 100% on R/A; tm3 10:02 BP 125 / 56; Pulse 87; Resp 16; Pulse Ox 100% ; bp [place] Coma Score: 07:55 Eye Response: spontaneous(4). Verbal Response: oriented(5). Motor Response: obeys bp commands(6). Total: 15. ED Course: 07:52 Patient arrived in ED. bp 07:52 Michael Crawford MD is Attending Physician. rn 07:54 Triage completed. bp 07:55 Arm band placed on. bp 07:59 Sean Pompa, RN is Primary Nurse. bp 08:57 CT Head Brain wo Cont Sent. bp 09:06 CT Head Brain wo Cont In Process Unspecified. EDMS 10:03 Patient has correct armband on for positive identification. Bed in low position. Call bp light in reach. Side rails up X2. 10:03 No provider procedures requiring assistance completed. IV discontinued, intact, bp bleeding controlled, No redness/swelling at site. Pressure dressing applied. 10:07 Seizure precautions initiated. kc6 Administered Medications: 08:21 Drug: Keppra (levETIRAcetam) 500 mg Route: PO; bp 08:41 Follow up: Response: No adverse reaction bp Medication: 10:03 VIS not applicable for this client. bp Outcome: 09:56 Discharge ordered by . rn 10:06 Discharged to [employer] kc6 10:06 Condition: stable 10:06 Discharge instructions given to patient, Instructed on discharge instructions, medication usage, Demonstrated understanding of instructions, medications, Prescriptions given X 1. 10:12 Patient left the ED. kc6 Signatures: Dispatcher [employer] EDMS Raheem Luther 3 Michael Crawford MD MD rn Peltier, Brian, RN RN bp Caroline Morales, RN RN kc6
--- NOTE | 2022-04-23 09:57 | EDPHYS ---
Physician Documentation [facility] Name: Frank Fortune Age: 26 yrs Sex: Male : 1995 Arrival Date: 04/23/2022 Time: 07:52 Bed 14 Private MD: ED Physician Michael Crawford HPI: 04/23 08:51 This 26 yrs old Male presents to ER via EMS with complaints of Probable Seizure. rn 08:51 The patient presents after having a single isolated seizure. Character of seizure(s): rn Loss of consciousness: it is not known if the patient experienced loss of consciousness, Motor activity: generalized, Incontinence: none, Apnea: the patient did not experience apnea, Circulation: the patient did not experience evidence of pulse disturbance, Eye movements: are unknown. Seizure onset: this morning. Associated injury: Head/face:. Current symptoms: headache. The patient has experienced similar episodes in the past. The patient has not recently seen a physician. Unwitnessed possible seizure this morning in assisted/custodial. Single episode. Patient reports hx of seizure. Historical: - Allergies: 07:55 No Known Drug Allergies; bp - PMHx: 07:55 drug abuse; possibly siezure; Schizophrenia; Seizures; bp - Immunization history:: Adult Immunizations up to date. - Social history:: Smoking status: unknown. - Family history:: not pertinent. - Hospitalizations: : No recent hospitalization is reported. ROS: 08:51 Constitutional: Negative for fever, chills, and weight loss, Eyes: Negative for injury, rn pain, redness, and discharge, Cardiovascular: Negative for chest pain, palpitations, and edema, Respiratory: Negative for shortness of breath, cough, wheezing, and pleuritic chest pain, Abdomen/GI: Negative for abdominal pain, nausea, vomiting, diarrhea, and constipation, Back: Negative for injury and pain, MS/Extremity: Negative for injury and deformity, Skin: Negative for injury, rash, and discoloration, Neuro: Negative for headache, weakness, numbness, tingling Exam: 08:51 Constitutional: This is a well developed, well nourished patient who is awake, alert, rn and in no acute distress. Head/Face: Normocephalic, atraumatic. Neck: Trachea midline, no thyromegaly or masses palpated, and no cervical lymphadenopathy. Supple, full range of motion without nuchal rigidity, or vertebral point tenderness. No Meningismus. Cardiovascular: Regular rate and rhythm. No pulse deficits. Respiratory: No increased work of breathing, no retractions or nasal flaring. Abdomen/GI: Soft, non-tender Skin: Warm, dry MS/ Extremity: Pulses equal, no cyanosis. Neuro: Awake and alert, GCS 15, oriented to person, place, time, and situation. Cranial nerves II-XII grossly intact. Motor strength 5/5 in all extremities. Sensory grossly intact. 13:53 ECG was reviewed by the Attending Physician. rn Vital Signs: 07:52 BP 125 / 87 Sitting; Pulse 98; Resp 17; Temp 98; Pulse Ox 99% ; bp 07:52 BP 141 / 92 Standing; Pulse 74; bp 07:57 BP 131 / 87; Pulse 90; Resp 18; Temp 97.8; Pulse Ox 100% on R/A; tm3 10:02 BP 125 / 56; Pulse 87; Resp 16; Pulse Ox 100% ; bp [place] Coma Score: 07:55 Eye Response: spontaneous(4). Verbal Response: oriented(5). Motor Response: obeys bp commands(6). Total: 15. MDM: 08:00 Patient medically screened. rn 09:55 Differential diagnosis: seizure. Differential diagnosis: cardiac arrhythmia, syncope. rn Data reviewed: vital signs, nurses notes, lab test result(s), radiologic studies, CT scan, and as a result, I will discharge patient. Counseling: I had a detailed discussion with the patient and/or guardian regarding: the historical points, exam findings, and any diagnostic results supporting the discharge/admit diagnosis, lab results, radiology results, the need for outpatient follow up, to return to the emergency department if symptoms worsen or persist or if there are any questions or concerns that arise at home. Response to treatment: the patient's symptoms have markedly improved after treatment, the patient's condition has returned to base line, the patient is now symptom free, and as a result, I will discharge patient. Special discussion: I discussed with the patient/guardian in detail that at this point there is no indication for admission to the hospital. It is understood, however, that if the symptoms persist or worsen the patient needs to return immediately for re-evaluation. 04/23 08:05 Order name: CBC with Diff; Complete Time: 09:13 rn 04/23 08:05 Order name: Basic Metabolic Panel; Complete Time: 09:23 rn 04/23 08:05 Order name: CT Head Brain wo Cont; Complete Time: 09:55 rn 04/23 08:05 Order name: IV Start; Complete Time: 08:17 rn 04/23 08:05 Order name: EKG; Complete Time: 08:05 rn 04/23 08:05 Order name: EKG - Nurse/Tech; Complete Time: 08:41 rn 04/23 08:45 Order name: Labs - recollect needed: recollect chemistries/ hemolyzed; Complete Time: eb 08:57 EC:53 Rate is 77 beats/min. Rhythm is regular. QRS [place] is Normal. IA interval is normal. QRS rn interval is normal. QT interval is normal. No Q waves. T waves are Normal. No ST changes noted. Clinical impression: Sinus tachycardia. Interpreted by me. Reviewed by me. Administered Medications: 08:21 Drug: Keppra (levETIRAcetam) 500 mg Route: PO; bp 08:41 Follow up: Response: No adverse reaction bp Disposition Summary: 04/23/22 09:56 Discharge Ordered Location: Home rn Problem: new rn Symptoms: have improved rn Condition: Stable rn Diagnosis - Epileptic seizures related to external causes, not intractable, without status rn epilepticus Followup: rn - With: Private Physician - When: As needed - Reason: Recheck today's complaints, Re-evaluation by your physician Discharge Instructions: - Epilepsy rn - Seizure, Adult rn - Discharge Summary Sheet bp Forms: - Medication Reconciliation Form rn - Thank You Letter rn - SBAR form bp - Antibiotic sport internship - Prescription Opioid Use rn Prescriptions: - Keppra 500 mg Oral Tablet - take 1 tablet by ORAL route every 12 hours; 60 tablet; Refills: 0, Product rn Selection Permitted Signatures: Dispatcher [employer] Michael Ignacio MD MD rn Peltier, Brian RN RN Lelia Diaz
[2022-04-23 10:45] VITALS: TEMP 97.8; O2SAT 100
[2022-04-23 10:57] VITALS: BP 125/56
--- NOTE | 2022-04-24 16:52 | EKG ---
Test Date: 2022-04-23 Test Time: 08:43:33 [employer]edge Fund Principal: LAKSHMI MEASUREMENT RESULTS: Intervals: Rate: 77 NM: 126 QRSD: 100 QT: 362 QTc: 409 [place]: P: 39 NM: 126 QRS: 84 T: 66 INTERPRETIVE STATEMENTS: Sinus rhythm with sinus arrhythmia with occasional premature ventricular complexes Otherwise normal ECG Compared to ECG 06/07/2018 18:37:08 Ventricular premature complex(es) now present Electronically Signed On 04-24-22 16:50:37 [employer]UAL [employer] DEVELOPER by Fernando Barger
== END 2022-04-23 10:12 | disposition home or self-care (01) ==
LOC: ER 07:51
DX: G40.509 Epileptic seizures related to external causes, not intractable, without status epilepticus (principal)
CPT/HCPCS: 36415; 70450; 80048; 85025; 93005; 99284

== ENCOUNTER → 2023-06-27 | Emergency (ER) | payer SELFPAY ==
[~2023-06-27] MED LIST: KETOROLAC 30 MG/ML INJ ONE; MAGNESIUM SULFATE 1 gm IVPB 1 GM/100 ML BAG IV ONE; MORPHINE 4 MG/ML SYR ONE; NA CHLORIDE 0.9% 1,000 ML ONE; ONDANSETRON 4 MG/2 ML VIAL ONE; TAMSULOSIN 0.4 MG SR CAP ONE
[2023-06-27 08:54] LABS: Absolute Lymphocytes (CBC) 1.4 K/uL (0.7-4.9); Absolute Monocytes 1.8 K/uL (0.1-1.3); Absolute Neutrophil 13.8 K/uL (1.8-8.0); Basophils % 0.2 % (0-1.3); Eosinophils % 0.1 % (0-4.4); Hematocrit 42.9 % (39.6-49.0); Hemoglobin 14.4 g/dL (13.6-17.9); Lymphocytes % 8.4 % (15.3-44.8); MCH 30.8 pg (27.0-35.0); MCHC 33.6 g/dL (32.0-36.0); MCV 91.6 fL (80-100); MPV 7.1 fL (7.6-11.3); Monocytes % 10.6 % (3.3-12.3); Neutrophils % 80.7 % (41.7-73.7); Nucleated Red Blood Cells % 0.1 % (0-0); Platelets 429 thou/uL (152-406); RBC Red Blood Cell Count 4.68 M/uL (4.33-5.43); Red Cell Distribution Width 13.2 % (12.1-15.2)
[2023-06-27 09:10] LABS: Albumin/Globulin Ratio 1.3 (1.1-1.8); Anion Gap 8.2 mEq/L (5.0-15.0); Bilirubin Total 0.6 mg/dL (0.2-1.0); Globulin 3.1 g/dL (2.3-3.5); Potassium 4.2 mEq/L (3.5-5.1); Protein, Total 7.1 g/dL (6.4-8.2)
[2023-06-27 09:15] LABS: SARS-CoV-2 Antigen CONTROL BLUE LINE VIS/BG OK; SARS-CoV-2 Antigen Rapid Res Negative (Negative)
--- NOTE | 2023-06-27 09:30 | RAD REPORT ---
EXAM DESCRIPTION: CT - Abdomen Pelvis W Contrast - 06/27/2023 8:28 am CLINICAL HISTORY: Abd pain;Nausea / vomiting COMPARISON: Chest Single View dated 06/07/2018 TECHNIQUE: Thin cut axial CT imaging of the abdomen and pelvis was performed following intravenous a dministration of 100 mL Isovue 300. Multiplanar reformats were generated and reviewed. All CT scans are performed using dose optimization technique as appropriate and may include automated exposure control or mA/KV adjustment according to patient size. FINDINGS: No suspicious findings in the lung bases. Elevation of the left hemidiaphragm. Left lower lobe peribronchovascular 8 mm nodule The liver, spleen, and pancreas show no suspicious findings. Gallbladder and biliary tree are also wi thout suspicious finding. Moderate left hydronephrosis. 3 mm left mid ureteric calculus. 2 mm left lower pole nonobstructing ca lculus. No dilated bowel loops or bowel wall thickening. No free air, free fluid or inflammatory stranding. N o hernia, mass or bulky lymphadenopathy. The urinary bladder is without significant finding. No suspicious bony findings. IMPRESSION: Left moderate hydronephrosis with a 3 mm left mid ureteric obstructing calculus. The left lower renal pole 2 mm nonobstructing calculus. Incidentally noted left lower lobe peribronchovascular 8 mm nodule. A follow-up CT chest in 6 months is recommended to ensure stability. The findings were communicated to Michael Crawford on 06/27/2023 at 09:26 hours.
[2023-06-27 10:10] LABS: Barbiturates NEGATIVE (NEGATIVE); Benzodiazepines NEGATIVE (NEGATIVE); Cocaine NEGATIVE (NEGATIVE); METHAMPHETAM POSITIVE (NEGATIVE); Methadone NEGATIVE (NEGATIVE); Opiates NEGATIVE (NEGATIVE); Phencyclidine NEGATIVE (NEGATIVE); THC Cannibis POSITIVE (NEGATIVE)
[2023-06-27 10:49] LABS: Specific Gravity > 1.030 (1.005-1.030); Sqamous Epithelial None Seen /HPF (None Seen); Urine Bacteria None Seen /HPF (<20); Urine Bilirubin NEGATIVE (Negative); Urine Blood 3+ (OVER) (Negative); Urine Clarity Clear (Clear); Urine Color Yellow (Yellow); Urine Culture Reflex Order NOT NEEDED; Urine Glucose NEGATIVE (Negative); Urine Ketones NEGATIVE (Negative); Urine Microscopic Reflex YN ORDER UMIC; Urine Mucus Slight /HPF (None Seen); Urine Nitrite NEGATIVE (Negative); Urine Protein TRACE (Negative); Urine RBC >50 /HPF (None Seen); Urine Urobilinogen Normal (Normal); Urine WBC <5 /HPF (<5)
--- NOTE | 2023-06-27 11:53 | ER ---
Nurse's Notes [facility] [place] Name: Frank Fortune Age: 27 yrs Sex: Male : 1995 Arrival Date: 06/27/2023 Time: 07:36 Bed 11 Private MD: Diagnosis: Calculus of ureter Presentation: 06/26 07:45 Chief complaint: Patient states: left sided abd pain and vomiting X 3 days , no iw diarrhea, feels like he has fever. Coronavirus screen: Client presents with at least one sign or symptom that may indicate coronavirus-19. Ebola Screen: Patient negative for fever greater than or equal to 101.5 degrees Fahrenheit, and additional compatible Ebola Virus Disease symptoms Patient denies exposure to infectious person. Patient denies travel to an Ebola-affected area in the 21 days before illness onset. No symptoms or risks identified at this time. Initial Sepsis Screen: Does the patient meet any 2 criteria? No. Patient's initial sepsis screen is negative. Does the patient have a suspected source of infection? No. Patient's initial sepsis screen is negative. Risk Assessment: Do you want to hurt yourself or someone else? Patient reports no desire to harm self or others. Onset of symptoms was June 25, 2023. 07:45 Method Of Arrival: Wheelchair iw 07:45 Acuity: [place] 3 iw Historical: - Allergies: 07:46 No Known Allergies; iw - Home Meds: 07:46 None [Active]; iw - PMHx: 07:46 drug abuse; possibly siezure; Schizophrenia; Seizures; iw - PSHx: 07:46 None; iw - Immunization history:: Client reports receiving the 2nd dose of the Covid vaccine. - Social history:: Smoking status: Reported history of juuling and/or vaping. Patient uses street drugs, marijuana, Methamphetamine (Meth). - Family history:: not pertinent. - Hospitalizations: : No recent hospitalization is reported. Screenin:[facility] ED Fall Risk Assessment (Adult) History of falling in the last 3 months, jl7 including since admission No falls in past 3 months (0 pts) Confusion or Disorientation No (0 pts) Intoxicated or Sedated No (0 pts) Impaired Gait No (0 pts) Mobility Assist Device Used No (0 pt) Altered Elimination No (0 pt) Score/Fall Risk Level 0 - 2 = Low Risk Oriented to surroundings, Maintained a safe environment, Hourly rounding (assess needs \T\ fall precautionary measures) done. Abuse screen: Denies threats or abuse. Denies injuries from another. Nutritional screening: No deficits noted. Tuberculosis screening: No symptoms or risk factors identified. Assessment: 10:53 Reassessment: Patient appears in no apparent distress at this time. Patient and/or jl7 family updated on plan of care and expected duration. Pain level reassessed. Patient is alert, oriented x 3, equal unlabored respirations, skin warm/dry/pink. Pain rated 3/10 at this time. ERD gave VO for 30 mg toradol IVP Patient states feeling better. Patient states symptoms have improved. 12:07 General: Appears ill, well groomed, well developed, well nourished, Behavior is calm, me1 cooperative, appropriate for age. Pain: Denies pain. Neuro: Level of Consciousness is awake, alert, obeys commands, Oriented to person, place, time, situation, Appropriate for age. Cardiovascular: Patient's skin is warm and dry. Respiratory: Respiratory effort is even, unlabored, Respiratory pattern is regular, symmetrical. GI: Bowel sounds present X 4 quads. Abd is soft X 4 quads. Vital Signs: 07:45 BP 140 / 96; Pulse 60; Resp 16; Temp 97.4; Pulse Ox 100% on R/A; Weight 68.04 kg; iw Height 6 ft. 1 in. ; Pain 10/10; 10:02 BP 161 / 94; Pulse 71; Resp 16; Pulse Ox 98% on R/A; iw 10:53 Pain 3/10; jl7 11:20 BP 124 / 78; Pulse 70; Resp 15; Pulse Ox 100% ; Pain 3/10; jl7 12:10 BP 113 / 59; Pulse 93; Resp 16; Temp 98.6; Pulse Ox 100% on R/A; Pain 3/10; me1 12:16 Pain 3/10; me1 07:45 Body Mass Index 19.79 (68.04 kg, 185.42 cm) iw 07:45 Pain Scale: Adult iw 10:53 Pain Scale: Adult jl7 11:20 Pain Scale: Adult jl7 12:10 Pain Scale: Adult me1 12:16 Pain Scale: Adult me1 ED Course: 07:37 Patient arrived in ED. rg4 07:38 Michael Crawford MD is Attending Physician. rn 07:46 Triage completed. iw 07:47 Arm band placed on. iw 08:26 Inserted saline lock: 22 gauge in right antecubital area, using aseptic technique. iw 08:30 CT Abd/Pelvis - IV Contrast Only In Process Unspecified. EDMS 08:36 Lab(s) recollected, by me, sent to lab. jb4 09:14 Beatrice Pastrana, RN is Primary Nurse. iw 10:30 Patient has correct armband on for positive identification. Bed in low position. Call jl7 light in reach. Side rails up X 1. Provided Education on: use of call shay. Pulse ox on. NIBP on. Warm blanket given. 11:02 Urine collected: clean catch specimen, clear. jl7 11:53 Xavi Boo MD is Referral Physician. rn 12:15 No provider procedures requiring assistance completed. IV discontinued, intact, me1 bleeding controlled, No redness/swelling at site. Pressure dressing applied. Administered Medications: 08:44 Drug: NS 0.9% IV 1000 ml IV at 1 bolus Per protocol; 1000 mL bolus Route: IV; Rate: 1 jb4 bolus; Site: right antecubital; 12:16 Follow up: Response: No adverse reaction; IV Status: Completed infusion; IV Intake: me1 1000ml 08:44 Drug: Ondansetron IVP 4 mg IVP once; over 2 minutes Route: IVP; Site: right antecubital;jb4 12:16 Follow up: Response: No adverse reaction; Nausea is decreased me1 09:48 Drug: Magnesium Sulfate IVPB 1 grams IVPB once over 1 hrs Route: IVPB; Infused Over: 1 iw hrs; Site: right antecubital; 10:53 Follow up: Response: No adverse reaction; IV Status: Completed infusion jl7 09:48 Drug: morphine IVP or IV 4 mg IVP once over 4 mins Route: IVP; Infused Over: 4 mins; iw Site: right antecubital; 10:53 Follow up: Pain 3/10 Adult; Response: No adverse reaction; Pain is decreased jl7 09:49 Drug: Flomax PO 0.4 mg PO once Route: PO; iw 10:53 Follow up: Response: No adverse reaction jl7 10:50 Drug: Ketorolac IVP 30 mg IVP once Route: IVP; Site: right antecubital; jl7 12:16 Follow up: Pain 10 Adult; Response: No adverse reaction me1 Medication: 11:20 VIS not applicable for this client. jl7 Intake: 12:16 IV: 1000ml; Total: 1000ml. me1 Outcome: 11:53 Discharge ordered by . rn 12:15 Discharged to home ambulatory, me1 12:15 Condition: stable 12:15 Discharge instructions given to patient, Instructed on discharge instructions, follow up and referral plans. medication usage, Demonstrated understanding of instructions, follow-up care, medications, Prescriptions given X 4, 12:17 Patient left the ED. me1 Signatures: Dispatcher [employer] EDBeatrice Craig RN Michael Saravia MD MD rn Garcia, Rubi rg4 Bryson, James, RN RN jb4 Lisa Prater RN RN jl7 Valarie Ramsey RN RN me1
--- NOTE | 2023-06-27 11:53 | EDPHYS ---
Physician Documentation [facility] Name: Frank Fortune Age: 27 yrs Sex: Male : 1995 Arrival Date: 06/27/2023 Time: 07:36 Bed 11 Private MD: ED Physician Michael Crawford HPI: 06/26 08:00 This 27 yrs old Male presents to ER via Wheelchair with complaints of Abdominal Pain. rn 08:00 The patient presents with abdominal pain in the left upper quadrant, in the left lower rn quadrant. Onset: The symptoms/episode began/occurred 3 day(s) ago. The symptoms do not radiate. Associated signs and symptoms: Pertinent positives: nausea and vomiting, Pertinent negatives: blood in stools, chest pain, hematuria, shortness of breath, testicular pain, vomiting blood. The symptoms are described as sharp, stabbing. Modifying factors: The symptoms are alleviated by nothing, the symptoms are aggravated by movement, pressure. Severity of pain: At its worst the pain was moderate in the emergency department the pain is unchanged. The patient has not experienced similar symptoms in the past. The patient has not recently seen a physician. Patient reports left-sided abdominal pain associated with vomiting for 3 days now. Told EMS that he feels like he is sick since stopping his meth use. Denies drug use. Reports subjective fever. No hematemesis. No blood in stool. No trauma.. Historical: - Allergies: 07:46 No Known Allergies; iw - Home Meds: 07:46 None [Active]; iw - PMHx: 07:46 drug abuse; possibly siezure; Schizophrenia; Seizures; iw - PSHx: 07:46 None; iw - Immunization history:: Client reports receiving the 2nd dose of the Covid vaccine. - Social history:: Smoking status: Reported history of juuling and/or vaping. Patient uses street drugs, marijuana, Methamphetamine (Meth). - Family history:: not pertinent. - Hospitalizations: : No recent hospitalization is reported. ROS: 08:00 Constitutional: Positive for subjective fever Eyes: Negative for injury, pain, redness, rn and discharge, Cardiovascular: Negative for chest pain, palpitations, and edema, Respiratory: Negative for shortness of breath, cough, wheezing, and pleuritic chest pain, Abdomen/GI: Positive for left-sided abdominal pain with vomiting MS/Extremity: Negative for injury and deformity, Skin: Negative for injury, rash, and discoloration, Neuro: Positive for generalized weakness Exam: 08:00 Constitutional: This is a well developed, well nourished patient who is awake, alert, rn and in no acute distress. ENT: Dry mucous membranes Cardiovascular: Regular rate and rhythm. No pulse deficits. Respiratory: No increased work of breathing, no retractions or nasal flaring. Abdomen/GI: Soft, tenderness left upper quadrant left lower quadrant. No rebound or guarding Skin: Warm, dry MS/ Extremity: Pulses equal, no cyanosis. Neuro: Awake and alert, GCS 15 Vital Signs: 07:45 BP 140 / 96; Pulse 60; Resp 16; Temp 97.4; Pulse Ox 100% on R/A; Weight 68.04 kg; iw Height 6 ft. 1 in. ; Pain 10/10; 10:02 BP 161 / 94; Pulse 71; Resp 16; Pulse Ox 98% on R/A; iw 10:53 Pain 3/10; jl7 11:20 BP 124 / 78; Pulse 70; Resp 15; Pulse Ox 100% ; Pain 3/10; jl7 12:10 BP 113 / 59; Pulse 93; Resp 16; Temp 98.6; Pulse Ox 100% on R/A; Pain 3/10; me1 12:16 Pain 3/10; me1 07:45 Body Mass Index 19.79 (68.04 kg, 185.42 cm) iw 07:45 Pain Scale: Adult iw 10:53 Pain Scale: Adult jl7 11:20 Pain Scale: Adult jl7 12:10 Pain Scale: Adult me1 12:16 Pain Scale: Adult me1 MDM: 07:38 Patient medically screened. rn 11:37 Differential diagnosis: non-specific abd pain, Ureterolithiasis, urinary tract rn infection. Data reviewed: vital signs, nurses notes, lab test result(s), radiologic studies. 11:52 Counseling: I had a detailed discussion with the patient and/or guardian regarding the rn historical points, exam findings, and any diagnostic results supporting the discharge/admit diagnosis, lab results, radiology results, the need for outpatient follow up, to return to the emergency department if symptoms worsen or persist or if there are any questions or concerns that arise at home. 11:52 Response to treatment: the patient's symptoms have markedly improved after treatment, rn and as a result, I will discharge patient. Special discussion: I discussed with the patient/guardian in detail that at this point there is no indication for admission to the hospital. It is understood, however, that if the symptoms persist or worsen the patient needs to return immediately for re-evaluation. Based on the history and exam findings, there is no indication for further emergent testing or inpatient evaluation. I discussed with the patient/guardian the need to see the urologist for further evaluation of the symptoms. 06/26 07:44 Order name: CBC with Diff; Complete Time: 09:10 rn 06/26 07:44 Order name: CMP; Complete Time: 09:50 rn 06/26 07:44 Order name: Lipase; Complete Time: 09:50 rn 06/26 07:44 Order name: Urine Drug Screen; Complete Time: 10:32 rn 06/26 07:48 Order name: Flu; Complete Time: 09:50 rn 06/26 07:48 Order name: SARS RAPID; Complete Time: 09:50 rn 06/26 10:32 Order name: Urinalysis w/ reflexes; Complete Time: 11:08 rn 06/26 07:44 Order name: CT Abd/Pelvis - IV Contrast Only; Complete Time: 09:50 rn 06/26 07:44 Order name: IV Saline Lock; Complete Time: 08:26 rn 06/26 07:44 Order name: Labs collected and sent; Complete Time: 08:26 rn Administered Medications: 08:44 Drug: NS 0.9% IV 1000 ml IV at 1 bolus Per protocol; 1000 mL bolus Route: IV; Rate: 1 jb4 bolus; Site: right antecubital; 12:16 Follow up: Response: No adverse reaction; IV Status: Completed infusion; IV Intake: me1 1000ml 08:44 Drug: Ondansetron IVP 4 mg IVP once; over 2 minutes Route: IVP; Site: right antecubital;jb4 12:16 Follow up: Response: No adverse reaction; Nausea is decreased me1 09:48 Drug: Magnesium Sulfate IVPB 1 grams IVPB once over 1 hrs Route: IVPB; Infused Over: 1 iw hrs; Site: right antecubital; 10:53 Follow up: Response: No adverse reaction; IV Status: Completed infusion jl7 09:48 Drug: morphine IVP or IV 4 mg IVP once over 4 mins Route: IVP; Infused Over: 4 mins; iw Site: right antecubital; 10:53 Follow up: Pain 3/10 Adult; Response: No adverse reaction; Pain is decreased jl7 09:49 Drug: Flomax PO 0.4 mg PO once Route: PO; iw 10:53 Follow up: Response: No adverse reaction jl7 10:50 Drug: Ketorolac IVP 30 mg IVP once Route: IVP; Site: right antecubital; jl7 12:16 Follow up: Pain 3/10 Adult; Response: No adverse reaction me1 Disposition Summary: 06/27/23 11:53 Discharge Ordered Notes: Location: Home rn Problem: new rn Symptoms: have improved rn Condition: Stable rn Diagnosis - Calculus of ureter rn Followup: rn - With: Xavi Boo MD - When: As needed - Reason: Recheck today's complaints, Re-evaluation by your physician Discharge Instructions: - Discharge Summary Sheet rn - Kidney Stones rn - Renal Colic rn - Dietary Guidelines to Help Prevent Kidney Stones rn Forms: - Medication Reconciliation Form rn - Thank You Letter rn - Antibiotic rabble furnace tender - Prescription Opioid Use rn - Patient Portal Instructions rn - Leadership Thank You Letter rn Prescriptions: - Flomax 0.4 mg Oral capsule - take 1 capsule ORAL route every 24 hours Stop taking once kidney stone has rn passed; 5 capsule; Refills: 0, Product Selection Permitted - Ibuprofen 800 mg Oral Tablet - take 1 tablet ORAL route every 12 hours As needed take with food; 20 tablet; rn Refills: 0, Product Selection Permitted - Cipro 500 mg Oral Tablet - take 1 tablet ORAL route every 12 hours for 7 days; 14 tablet; Refills: 0, rn Product Selection Permitted - Tramadol 50 mg Oral Tablet - take 1 tablet ORAL route every 8 hours as needed; 12 tablet; Refills: 0, rn Product Selection Permitted Signatures: Dispatcher [employer] Beatrice Ellis RN RN Michael Luna MD MD rn Bryson, James, RN RN [email or web address] Lisa Prater RN RN jl7 Valarie Ramsey RN me1
[2023-06-27 12:46] VITALS: BP 113/59; TEMP 98.6; O2SAT 100
== END ==
LOC: ER 07:36
DX: N20.1 Calculus of ureter (principal); Z11.52 Encounter for screening for COVID-19
CPT/HCPCS: 36415; 74177; 80053; 80307; 81001; 83690; 85025; 87804; 87811; J2405; J3475; J7030; Q9967

== ENCOUNTER 2023-09-19 09:43 | Emergency (ER) | payer OTHER ==
--- NOTE | 2023-09-19 10:17 | RAD REPORT ---
EXAM DESCRIPTION: RAD - C Spine Ap/Lat - 09/19/2023 10:09 am CLINICAL HISTORY: fall after seizure Trauma, neck injury COMPARISON: No comparisons FINDINGS: Cervical bodies are normal in height and alignment.No fracture or acute bony process seen. Mild lower cervical spondylosis. No prevertebral soft tissue thickening or other suspicious soft tissue finding. IMPRESSION: Negative cervical spine examination.
--- NOTE | 2023-09-19 10:18 | RAD REPORT ---
EXAM DESCRIPTION: RAD - Lumbar Spine 3 Views - 09/19/2023 10:08 am CLINICAL HISTORY: fall after seizure Radiculopathy COMPARISON: LUMBAR SPINE 3 VIEWS dated 11/06/2013 FINDINGS: Vertebral body heights appear maintained. No compression fracture noted. Mild disc thinnin g is seen at at L5-S1. No spondylolysis or spondylolisthesis. IMPRESSION: No acute abnormality detected. Mild L5-S1 disc thinning.
[2023-09-19] MEDS ORDERED: levETIRAcetam 500 MG TAB ONE (10:22)
[2023-09-19] MEDS ORDERED: IBUPROFEN 400 MG TAB ONE (10:23)
[2023-09-19 11:01] VITALS: BP 128/81; TEMP 97.8; O2SAT 99
--- NOTE | 2023-09-19 15:05 | ER ---
Nurse's Notes [facility] [place] Name: Frank Fortune Age: 28 yrs Sex: Male : 1995 Arrival Date: 09/19/2023 Time: 09:43 Bed 2 Private MD: Diagnosis: Other seizures Presentation: 09/18 09:54 Chief complaint: EMS states: Pt reports having had a seizure, fell backwards and landed rs5 on his back. Pt complains of pain to back and neck at this moment. Coronavirus screen: Client presents with at least one sign or symptom that may indicate coronavirus-19. Ebola Screen: No symptoms or risks identified at this time. Initial Sepsis Screen: Does the patient meet any 2 criteria? No. Patient's initial sepsis screen is negative. Does the patient have a suspected source of infection? No. Patient's initial sepsis screen is negative. Risk Assessment: Do you want to hurt yourself or someone else? Patient reports no desire to harm self or others. Onset of symptoms was September 19, 2023. 09:54 Method Of Arrival: EMS: [facility] rs5 09:54 Acuity: [place] 3 rs5 Triage Assessment: 09:55 General: Appears in no apparent distress. comfortable, Behavior is calm, cooperative. rs5 Historical: - Allergies: 09:56 No Known Allergies; rs5 - PMHx: 09:56 drug abuse; possibly siezure; Schizophrenia; Seizures; rs5 - PSHx: 09:56 None; rs5 - Immunization history:: Adult Immunizations up to date. - Infectious Disease History:: Denies. - Social history:: Smoking status: Patient denies any tobacco usage or history of. Screenin:50 [facility] ED Fall Risk Assessment (Adult) History of falling in the last 3 months, rs5 including since admission Yes- single mechanical fall (1 pt) Confusion or Disorientation No (0 pts) Intoxicated or Sedated No (0 pts) Impaired Gait No (0 pts) Mobility Assist Device Used No (0 pt) Altered Elimination No (0 pt) Score/Fall Risk Level 0 - 2 = Low Risk Oriented to surroundings, Maintained a safe environment. 09:50 Abuse screen: Denies threats or abuse. Nutritional screening: No deficits noted. rs5 Tuberculosis screening: No symptoms or risk factors identified. Assessment: 09:50 General: Appears in no apparent distress. comfortable, Behavior is calm, cooperative. rs5 09:50 Pain: Complains of pain in back and neck Pain currently is 5 out of 10 on a pain scale. rs5 Quality of pain is described as aching, Is continuous. Neuro: Level of Consciousness is awake, alert, obeys commands, Oriented to person, place, time, situation. Cardiovascular: Rhythm is regular. Respiratory: Airway is patent Respiratory effort is even, unlabored, Respiratory pattern is regular, symmetrical. GI: Abdomen is round non-distended, Abd is soft and non tender X 4 quads. : No signs and/or symptoms were reported regarding the genitourinary system. EENT: No signs and/or symptoms were reported regarding the EENT system. Derm: Skin is intact, Skin is pink, warm \T\ dry. Musculoskeletal: Range of motion: intact in all extremities. 10:40 Reassessment: Patient and/or family updated on plan of care and expected duration. Pain rs5 level reassessed. Patient is alert, oriented x 3, equal unlabored respirations, skin warm/dry/pink. Patient denies pain at this time. Vital Signs: 09:54 BP 128 / 81; Pulse 70; Resp 17; Temp 97.8(O); Pulse Ox 99% on R/A; rs5 10:35 BP 125 / 77; Pulse 66; Resp 17; Pulse Ox 99% on R/A; rs5 ED Course: 09:48 Patient arrived in ED. bd 09:50 Patient has correct armband on for positive identification. Placed in gown. Bed in low rs5 position. Call light in reach. Side rails up X2. 09:50 No provider procedures requiring assistance completed. rs5 09:51 Toshia Marc MD is Attending Physician. sp3 09:52 Arm band placed on right wrist. rs5 09:54 Cj Nichole, ROSS is Primary Nurse. rs5 09:55 Triage completed. rs5 10:10 Lumbar Spine (3 Views) XRAY In Process Unspecified. EDMS 10:10 C Spine Ap/Lat XRAY In Process Unspecified. EDMS 10:23 Sudhir Dumont MD is Referral Physician. sp3 10:40 Patient did not have IV access during this emergency room visit. rs5 Administered Medications: 10:27 Drug: Keppra PO 1000 mg PO once Route: PO; nj1 10:27 Drug: Ibuprofen PO 800 mg PO once Route: PO; nj1 Medication: 10:10 VIS not applicable for this client. rs5 Outcome: 10:23 Discharge ordered by . sp3 10:40 Discharged to Law Enforcement rs5 10:40 Condition: stable 10:40 Discharge instructions given to patient, police, Instructed on discharge instructions, follow up and referral plans. medication usage, Demonstrated understanding of instructions, follow-up care, medications, Prescriptions given X 1, 10:46 Patient left the ED. rs5 Signatures: Dispatcher [employer] EDMS Carli Ching Setul, MD MD sp3 Cj Nichole RN RN rs5 Lisa Parker RN RN nj1
--- NOTE | 2023-09-19 15:05 | EDPHYS ---
Physician Documentation [facility] Name: Frank Fortune Age: 28 yrs Sex: Male : 1995 Arrival Date: 09/19/2023 Time: 09:43 Bed 2 Private MD: ED Physician Toshia Marc HPI: 09/18 09:59 This 28 yrs old Male presents to ER via EMS with complaints of Seizure, neck and low sp3 back pain. 09:59 28-year-old male with history of drug abuse, prior seizures, schizophrenia [facility] with isolated reported seizure by patient to law enforcement while in custody. No seizures were witnessed. Upon EMS arrival, there was no postictal period reported by them. Patient states he fell at his cell after the seizure and complains of neck and low back pain. Patient states he has been off and on seizure medication throughout his life. He has been diagnosed with epilepsy as a child. Currently he denies headache, chest pain, upper back pain, shortness of breath, abdominal pain, vomiting, diarrhea, bleeding, rash, syncope, near syncope, or any other signs or symptoms on ROS at this time.. Historical: - Allergies: 09:56 No Known Allergies; rs5 - PMHx: 09:56 drug abuse; possibly siezure; Schizophrenia; Seizures; rs5 - PSHx: 09:56 None; rs5 - Immunization history:: Adult Immunizations up to date. - Infectious Disease History:: Denies. - Social history:: Smoking status: Patient denies any tobacco usage or history of. ROS: 10:01 Constitutional: Negative for fever, chills, and weight loss, Eyes: Negative for injury, sp3 pain, redness, and discharge, Neck: Negative for injury, pain, and swelling, Cardiovascular: Negative for chest pain, palpitations, and edema, Respiratory: Negative for shortness of breath, cough, wheezing, and pleuritic chest pain, Abdomen/GI: Negative for abdominal pain, nausea, vomiting, diarrhea, and constipation, Back: Negative for injury and pain, Skin: Negative for injury, rash, and discoloration, Psych: Negative for depression, anxiety, suicide ideation, homicidal ideation, and hallucinations, Allergy/Immunology: Negative for hives, rash, and allergies, Endocrine: Negative for neck swelling, polydipsia, polyuria, polyphagia, and marked weight changes, Hematologic/Lymphatic: Negative for swollen nodes, abnormal bleeding, and unusual bruising, 10:01 All other systems are negative, Exam: 10:01 Constitutional: This is a well developed, well nourished patient who is awake, alert, sp3 and in no acute distress. Head/Face: Normocephalic, atraumatic. Eyes: Pupils equal round and reactive to light, extra-ocular motions intact. Lids and lashes normal. Conjunctiva and sclera are non-icteric and not injected. Cornea within normal limits. Periorbital areas with no swelling, redness, or edema. ENT: Nares patent. No nasal discharge, no septal abnormalities noted. External auditory canals are clear. Oropharynx with no redness, swelling, or masses, exudates, or evidence of obstruction, uvula midline. Mucous membranes moist. Neck: Trachea midline, no thyromegaly or masses palpated, and no cervical lymphadenopathy. Supple, full range of motion without nuchal rigidity, or vertebral point tenderness. No Meningismus. Chest/axilla: Normal chest wall appearance and motion. Nontender with no deformity. No lesions are appreciated. Cardiovascular: Regular rate and rhythm with a normal S1 and S2. No gallops, murmurs, or rubs. Normal PMI, no JVD. No pulse deficits. Respiratory: Lungs have equal breath sounds bilaterally, clear to auscultation and percussion. No rales, rhonchi or wheezes noted. No increased work of breathing, no retractions or nasal flaring. Abdomen/GI: Soft, non-tender, with normal bowel sounds. No distension or tympany. No guarding or rebound. No evidence of tenderness throughout. Back: No spinal tenderness. No costovertebral tenderness. Full range of motion. Skin: Warm, dry with normal turgor. Normal color with no rashes, no lesions, and no evidence of cellulitis. MS/ Extremity: Pulses equal, no cyanosis. Neurovascular intact. Full, normal range of motion. Neuro: Awake and alert, GCS 15, oriented to person, place, time, and situation. Cranial nerves II-XII grossly intact. Motor strength 5/5 in all extremities. Sensory grossly intact. Cerebellar exam normal. Normal gait. Psych: Awake, alert, with orientation to person, place and time. Behavior, mood, and affect are within normal limits. Vital Signs: 09:54 BP 128 / 81; Pulse 70; Resp 17; Temp 97.8(O); Pulse Ox 99% on R/A; rs5 10:35 BP 125 / 77; Pulse 66; Resp 17; Pulse Ox 99% on R/A; rs5 MDM: 09:52 Patient medically screened. sp3 10:01 Data reviewed: vital signs, nurses notes, EMS record, radiologic studies. ED course: sp3 28-year-old male with PMH above now with reported seizure x 1. No postictal period and no ongoing seizure activity in the ED. Vital signs are completely within normal limits. Neurological and psychiatric examinations are both normal. Patient is in no acute distress. Neck and low back exams are normal other than mild pain to palpation of the musculature. Will obtain x-rays of the cervical and lumbar spine and treat his pain with ibuprofen and also orally load him with Keppra 1 g p.o. Patient will be discharged on p.o. Keppra prescription and follow-up with outpatient neurology either within the [facility] system or on his own if he is released. No further emergent intervention or medication indicated in the emergency department today.. 09/18 09:53 Order name: Lumbar Spine (3 Views) XRAY; Complete Time: 10:22 sp3 09/18 09:53 Order name: C Spine Ap/Lat XRAY; Complete Time: 10:22 sp3 Administered Medications: 10:27 Drug: Keppra PO 1000 mg PO once Route: PO; nj1 10:27 Drug: Ibuprofen PO 800 mg PO once Route: PO; nj1 Disposition Summary: 09/19/23 10:23 Discharge Ordered Notes: Location: Home sp3 Condition: Stable sp3 Diagnosis - Other seizures sp3 Followup: sp3 - With: Private Physician - When: Upon discharge from the Emergency Department - Reason: Continuance of care Followup: sp3 - With: Sudhir Dumont MD - When: Upon discharge from the Emergency Department - Reason: Continuance of care Discharge Instructions: - Discharge Summary Sheet sp3 - Seizure, Adult sp3 Forms: - Medication Reconciliation Form sp3 - Antibiotic Education sp3 - Prescription Opioid Use sp3 - Patient Portal Instructions sp3 - Leadership Thank You Letter sp3 Prescriptions: - Keppra 500 mg Oral Tablet - take 1 tablet ORAL route every 12 hours; 20 tablet; Refills: 0, Product sp3 Selection Permitted Signatures: Dispatcher [employer] Toshia Phoenix MD MD sp3 Cj Nichole RN RN rs5 Lisa Parker RN RN nj1
== END 2023-09-19 10:46 | disposition home or self-care (01) ==
LOC: ER 09:43
DX: G40.89 Other seizures (principal); M54.2 Cervicalgia; M54.50 Low back pain, unspecified; W18.30XA Fall on same level, unspecified, initial encounter
CPT/HCPCS: 72040; 72100